=== PATIENT | male | born 1965 | race Caucasian/White ===

== ENCOUNTER 2016-07-01 15:36 | Emergency (ER) | payer OTHER ==
[~2016-07-01] VITALS: Ht 188 cm; Wt 93.1 kg
[~2016-07-01 15:36] MED LIST: ALTACE2.5 MG PO; ALTACE5 MG PO; BENADRYL25 MG PO; CRESTOR20 MG PO; CRESTOR40 MG PO; FLEXERIL10 MG PO; LANTUS 3 M100 UNITS1 SC; LIDODERM 5% P1 PATCH TD; MELOXICAM7.5 MG PO; METFORMIN HCL1000 MG PO; MORPHINE SULFAT60 MG PO; NOHOMEMEDS; OPANA ER30 MG PO; OPANA ER40 MG PO; OXYCODONE-APAP1 EACH PO; PERCOCET 10-321 EACH; PERCOCET 10-321 EACH PO; VIMOVO 500-201 EAC1 PO
[2016-07-01 16:30] LABS: ADD MIUA? NO; BILIRUBIN NEGATIVE; BLOOD NEGATIVE; COLOR YELLOW ((YELLOW)); GLUCOSE (STRIP) >=1000; KETONES NEGATIVE; LEUKOCYTES NEGATIVE; NITRITE NEGATIVE; PROTEIN (STRIP) 30; SPECIFIC GRAVITY 1.044 (1.000-1.030); UCUL ADDED? NO; UROBILINOGEN 0.2 MG/DL (0.2-1.0)
[2016-07-01 17:04] LABS: CHLORIDE 101 mEq/L (99-109); POTASSIUM 4.5 mEq/L (3.7-5.4); SODIUM 135 mEq/L (136-147)
[2016-07-01 17:06] LABS: GLUCOSE 278 mg/dL (70-99)
[2016-07-01 17:07] LABS: ANION GAP 8 MEQ/L (2-14)
[2016-07-01 17:10] LABS: GFR ESTIMATE (CALCULATED) > 59 mL/min/; UREA NITROGEN (BUN) 14 mg/dL (9-23)
[2016-07-01 17:55] LABS: HEMATOCRIT ND % (38.0-50.0); MCH 32.8 PG (29.0-34.0); MCHC 35.7 G/DL (30.0-36.0); MCV 92.1 FL (86-99); MEAN PLAT.VOLUME 10.3 uM^3 (9.0-12.4); PLATELET COUNT 162 K/uL (156-360); RBC DIS.WIDTH-CV 11.9 % (11.8-14.6); RBC DIS.WIDTH-SD 38.2 % (39-53); RED BLOOD COUNT 4.81 M/uL (4.00-5.50); WHITE BLOOD COUNT 9.3 K/uL (4.1-10.2)
[2016-07-01] MEDS ORDERED: MIRALAX255 GM PO (18:47)
[2016-07-01] MEDS ORDERED: BACTRIM,SEPT1 TABLET PO (18:47)
[2016-07-01 19:02] LABS: POINT-OF-CARE METER ID UU13113800
[2016-07-01 19:07] VITALS: BP 166/85
== END 2016-07-01 19:09 | disposition home or self-care (01) ==
LOC: EME 15:36 → RME 15:36
PROVIDERS: Nurse Practitioner Family
DX: R10.9 Unspecified abdominal pain (principal); E11.65 Type 2 diabetes mellitus with hyperglycemia; N30.90 Cystitis, unspecified without hematuria; K59.03 Drug induced constipation; F17.200 Nicotine dependence, unspecified, uncomplicated; Z88.6 Allergy status to analgesic agent
CPT/HCPCS: 74176; 80048; 81003; 82948; 85027; 87086; 99281; 99284; J1885; J7030